=== PATIENT | female | born 1975 ===

== ENCOUNTER 2017-05-29 09:11 | Emergency (ER) | payer OTHER ==
[~2017-05-29] VITALS: Ht 157.5 cm; Wt 69.8 kg
[2017-05-29 09:16] VITALS: Ht 157.5 cm; Wt 69.8 kg
[2017-05-29 10:20] VITALS: BP 118/82
== END 2017-05-29 10:40 | disposition home or self-care (01) ==
LOC: ED 09:11
DX: B02.9 Zoster without complications (principal)
CPT/HCPCS: J1885